=== PATIENT | female | born 1975 | race Caucasian/White ===

== ENCOUNTER → 2017-05-06 | Outpatient (CLI) | payer BC ==
--- NOTE | 2017-05-06 08:34 | DIAGNOSTIC IMAGING REPORT ---
LUMBAR SPINE W/O CONTRAST CLINICAL HISTORY: 42 years-old Female with SPONDYLOSIS,POSSIBLE LYPOMA. Chronic low back pain with radiation to the hips. COMPARISON: None. TECHNIQUE: Multiplanar, multi sequence MRI of the lumbar spine was performed without intravenous contrast. 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 Signal within the spinal cord is within normal limits. Conus medullaris terminates at the L1 level. No focal bone marrow edema, fracture or marrow replacing process. Alignment is within normal limits. There are minimal disc desiccation at the L4-L5 level. No acute abnormality identified involving the intra-abdominal, intrapelvic or paraspinal tissues. T12-L1: No central canal or neural foraminal stenosis. L1-L2: No central canal or neural foraminal stenosis. L2-L3: No central canal or neural foraminal stenosis. L3-L4: No central canal or neural foraminal stenosis. L4-L5: Minimal disc desiccation and mild left-sided facet arthrosis. Small broad-based posterior disc bulge is noted with mild right-sided foraminal narrowing. Central canal and left neuroforamen are patent. L5-S1: No central canal or neural foraminal stenosis. IMPRESSION: 1. Minimal disc desiccation and mild left-sided facet arthrosis at L4-L5 with small broad-based posterior annular disc bulge causes mild right-sided foraminal narrowing. 2. No additional significant degenerative changes, high-grade central canal or foraminal narrowing identified. 3. No focal bone marrow edema or fracture. The above report was generated using voice recognition software. It may contain grammatical, syntax or spelling errors. Electronically signed by: Doc Rivera M.D. 05/06/2017 8:33 AM Dictated Date/Time: 05/06/2017 8:09 AM
== END | disposition home or self-care (01) ==
LOC: C.MRI 07:29
PROVIDERS: ATTEND Orthopaedic Surgery Orthopaedic Surgery of the Spine
DX: M47.816 Spondylosis without myelopathy or radiculopathy, lumbar region (principal); M51.26 Other intervertebral disc displacement, lumbar region; M48.061 Spinal stenosis, lumbar region without neurogenic claudication